=== PATIENT | female | born 1975 | race Two or more races ===

== ENCOUNTER 2018-05-31 09:09 | Emergency (ER) | payer OTHER ==
[~2018-05-31] VITALS: Ht 154.9 cm; Wt 90.7 kg
[~2018-05-31 09:09] MED LIST: GEODON20 MG; KLONOPIN0.5 MG/TAB; NORFLEX30 MG/ML; SYNTHROID50 MCG; WELLBUTRIN100 MG; [UNRECOGNIZED DRUG - OTHER]
[2018-05-31] MEDS ORDERED: DEPAKOTE ER500 MG (09:31)
[2018-05-31] MEDS ORDERED: SEROQUEL200 MG (09:31)
[2018-05-31] MEDS ORDERED: CYMBALTA20 MG (09:32)
== END 2018-05-31 21:47 | disposition home or self-care (01) ==
LOC: ER 09:09
DX: L23.5 Allergic contact dermatitis due to other chemical products (principal); J40 Bronchitis, not specified as acute or chronic; T55.1X4A Toxic effect of detergents, undetermined, initial encounter; Y92.89 Other specified places as the place of occurrence of the external cause

== ENCOUNTER 2020-03-08 06:20 | Emergency (ER) | payer OTHER ==
[~2020-03-08] VITALS: Ht 157.5 cm; Wt 89.8 kg
[~2020-03-08 06:20] MED LIST changes: +CYMBALTA20 MG; +DEPAKOTE ER500 MG; +SEROQUEL200 MG
[2020-03-08] MEDS ORDERED: NORFLEX100MG PO (08:44)
[2020-03-08] MEDS ORDERED: MEDROLPACK PO (08:44)
== END 2020-03-08 08:56 | disposition home or self-care (01) ==
LOC: ER 06:20
DX: M54.5 Low back pain (principal)

== ENCOUNTER 2022-08-24 12:16 | Emergency (ER) | payer OTHER ==
[~2022-08-24] VITALS: Ht 162.6 cm; Wt 80.3 kg
[~2022-08-24 12:16] MED LIST changes: +MEDROLPACK PO; +NORFLEX100MG PO
== END 2022-08-24 16:00 | disposition home or self-care (01) ==
LOC: ER 12:16
DX: R10.9 Unspecified abdominal pain (principal); Z88.0 Allergy status to penicillin; Z88.6 Allergy status to analgesic agent

== ENCOUNTER 2023-02-06 06:15 | Emergency (ER) | payer OTHER ==
[~2023-02-06] VITALS: Ht 157.5 cm; Wt 90.7 kg
[2023-02-06] MEDS ORDERED: SEROQUEL300 MG (06:24)
[2023-02-06] MEDS ORDERED: RESTORIL30 M1 (06:24)
[2023-02-06] MEDS ORDERED: MEDROLPACK PO (08:18)
[2023-02-06] MEDS ORDERED: NORFLEX100MG PO (08:18)
== END 2023-02-06 09:25 | disposition home or self-care (01) ==
LOC: ER 06:15
DX: M54.50 Low back pain, unspecified (principal); Z88.0 Allergy status to penicillin; Z88.6 Allergy status to analgesic agent
CPT/HCPCS: 96372; 99284; J1200; J2360